=== PATIENT | female | born 1985 | race Caucasian/White ===

== ENCOUNTER 2016-08-07 19:24 | Emergency (ER) | payer OTHER ==
[2016-08-07 19:37] VITALS: BP 157/84
[2016-08-07] MEDS ORDERED: Amoxicillin PO (*) 500 MG CAP PO ONE (21:39)
--- NOTE | 2016-09-01 09:47 | UC ---
I, Christopher,Miguel, scribed for Greta Ziegler MD on 08/07/16 at 2020 . Throat Pain/Nasal Davon HPI - HPI Summary HPI Summary: THis 31 y/o female presents to [facility] for fever and sore throat since 3 days ago. Temperature of 97.6 F is noted at triage. Positive SOLARES. Negative rash. in the household was recently dx with strep throat, and pt decided to visit [facility] today when she became concerned with possible sick contact. PMHx includes PCOS and DM. Pt is currently glipizide, metformin, and ramipirl. NKDA is confirmed with pt. Primary care involves Dr. Martinez. Plan of care involving strep throat is discussed with pt, and she is agreeable. - History of Current Complaint Chief Complaint: UCRespiratory Stated Complaint: ST,HEADACHE,FEVER Hx Obtained From: Patient, Medical Records Hx Last Menstrual Period: pcos does not get Onset/Duration: Gradual Onset, Lasting Days, Still Present Associated Signs & Symptoms: Positive: Fever, Rash - Allergies/Home Medications Allergies/Adverse Reactions: Allergies Allergy/AdvReac Type Severity Reaction Status Date / Time No Known Allergies Allergy Verified 04/03/12 09:59 Home Medications: Home Medications Ramipril CAP* [Altace CAP*] 5 mg PO DAILY 08/07/16 [History Confirmed 08/07/16] glipiZIDE TAB* [Glucotrol TAB*] 5 mg PO DAILY 08/07/16 [History Confirmed ] PMH/Surg Hx/FS Hx/Imm Hx - Additional Past Medical History Additional PMH: Positive Hx of PCOS. Endocrine History: Diabetes - Surgical History Surgical History: None - Family History Known Family History: Negative: Cardiac Disease - Social History Alcohol Use: None Substance Use Type: None Smoking Status (MU): Never Smoked Tobacco Review of Systems Constitutional: Fever Skin: Negative Eyes: Negative ENT: Sore Throat Respiratory: Negative Cardiovascular: Negative Gastrointestinal: Negative Genitourinary: Negative Motor: Negative Neurovascular: Negative Musculoskeletal: Negative Neurological: Headache Psychological: Negative All Other Systems Reviewed And Are Negative: Yes Physical Exam Triage Information Reviewed: Yes Appearance: Obese Vital Signs: Initial Vital Signs Temp 97.6 F 08/07/16 19:26 Pulse 118 08/07/16 19:26 Resp 18 08/07/16 19:26 BP 157/84 08/07/16 19:26 Pulse Ox 99 08/07/16 19:26 Vital Signs Reviewed: Yes Eyes: Positive: Conjunctiva Clear ENT: Positive: Pharyngeal erythema, Tonsillar swelling - equal bilat, Tonsillar exudate - white, Other: - uvula midline Neck: Positive: Nontender - Negative meningismus Respiratory: Positive: Lungs clear, Normal breath sounds, No respiratory distress, No accessory muscle use Cardiovascular: Positive: Pulses Normal, Brisk Capillary Refill, Tachycardia Musculoskeletal: Positive: ROM Intact Neurological: Positive: Muscle Tone Normal Psychological: Positive: Age Appropriate Behavior Throat Pain/Nasal Course/Dx - Course Assessment/Plan: No new problems in CCC. Home medication list reviewed and confirmed. Vital sign at triage reviewed, and elevated blood pressure of 154/ 84 is noted. Advised to drink lots of fluids. - Differential Dx/Diagnosis Provider Diagnoses: Strep throat. pharygitis. volume depletion Discharge - Discharge Plan Condition: Stable Disposition: HOME Prescriptions: Amoxicillin (*) [Amoxicillin 875 MG (*)] 875 mg PO BID #19 tab Patient Education Materials: Amoxicillin (By mouth), Pharyngitis (ED), Strep Throat (ED) Referrals: Jamie Martinez MD [Medical Doctor] - 2 Days Additional Instructions: Please follow up with your primary care provider per routine. Seek medical attention for worsening problems in the meantime. The documentation as recorded by the Christopher jay Soohyun accurately reflects the service I personally performed and the decisions made by me, Greta Ziegler MD.
== END 2016-08-07 22:06 | disposition home or self-care (01) ==
LOC: UCEAST 19:24
DX: J02.0 Streptococcal pharyngitis (principal); E86.9 Volume depletion, unspecified; E11.9 Type 2 diabetes mellitus without complications; Z79.84 Long term (current) use of oral hypoglycemic drugs; E28.2 Polycystic ovarian syndrome; E66.9 Obesity, unspecified
CPT/HCPCS: 87651; 99212; A9270-GY; G0463

== ENCOUNTER 2017-07-18 07:50 | Emergency (ER) | payer OTHER ==
--- NOTE | 2017-07-18 08:39 | UC ---
Knee Pain HPI - HPI Summary HPI Summary: Twisting injury to left knee descending stairs rapidly x 2 weeks ago. Has been using ice and ibuprofen 600 every 6 hours for control of pain. Knee has become progressively more painful and swollen. Has continued to weight bear. Unusually high BP today; normal renal function by history. Discussed, will defer imaging until assessed by orthopedics. - History of Current Complaint Chief Complaint: UCLowerExtremity Stated Complaint: KNEE PAIN (L) Time Seen by Provider: 07/18/17 08:28 Hx Obtained From: Patient Hx Last Menstrual Period: unknown, PCOS Onset/Duration: Sudden Onset, Lasting Weeks - about 2 Severity Initially: Moderate Severity Currently: Severe Pain Intensity: 8 Character: Aching, Throbbing Aggravating Factor(s): Movement, Weight Bearing, Prolonged Standing, Stairs Alleviating Factor(s): Rest, Position, OTC Meds Associated Signs And Symptoms: Positive: Swelling Able to Bear Weight: Yes - Risk Factors Septic Arthritis Risk Factor: Negative Gout Risk Factor: Obesity - Allergies/Home Medications Allergies/Adverse Reactions: Allergies Allergy/AdvReac Type Severity Reaction Status Date / Time No Known Allergies Allergy Verified 07/18/17 08:07 Home Medications: Home Medications Ibuprofen TAB* [Motrin TAB* 600 MG] 600 mg PO Q6H PRN 07/18/17 [History Confirmed 07/18/17] metFORMIN* [Glucophage 500 MG TAB *] 500 mg PO BID 07/18/17 [History Confirmed 07/18/17] PMH/Surg Hx/FS Hx/Imm Hx - Additional Past Medical History Additional PMH: Morbid obesity Endocrine History: Diabetes Cardiovascular History: Hypertension - On ramipril for kidney protection, but last BP in May was 123/96 at MD office. - Surgical History Surgical History: None - Family History Known Family History: Negative: Cardiac Disease - Social History Occupation: Employed Full-time - works at [employer] Lives: With Family - spouse and children Alcohol Use: None Substance Use Type: None Smoking Status (MU): Never Smoked Tobacco Have You Smoked in the Last Year: No Review of Systems Constitutional: Negative Skin: Negative Eyes: Negative ENT: Negative Respiratory: Negative Cardiovascular: Other - BP markedly elevated today; discussed could be promoted by nsaid's. Gastrointestinal: Negative Genitourinary: Negative Motor: Negative Neurovascular: Negative Musculoskeletal: Arthralgia Neurological: Negative Psychological: Negative Is Patient Immunocompromised?: No All Other Systems Reviewed And Are Negative: Yes Physical Exam Triage Information Reviewed: Yes Appearance: Pain Distress - moderate to severe., Obese Vital Signs: Initial Vital Signs Temp 98.6 F 07/18/17 08:04 Pulse 108 07/18/17 08:04 Resp 18 07/18/17 08:04 BP 157/107 07/18/17 08:04 Pulse Ox 99 07/18/17 08:04 Vital Signs Reviewed: Yes Respiratory: Positive: Lungs clear, Normal breath sounds Cardiovascular: Positive: RRR, No Murmur Musculoskeletal: Positive: ROM Limited @ - left knee, with large effusion. Flexion limited to approx 70 degrees, normal extension. Tenderness lateral joint line, posteriorly. No erythema or warmth. Neurological Exam: Normal Psychological Exam: Normal Skin Exam: Normal Knee Pain Course/Dx - Course Course Of Treatment: Likely meniscal tear --will decrease activity and refer to orthopedics. Ice, hydrocodone for pain not controlled by acetaminophen, ice. - Differential Dx/Diagnosis Differential Diagnosis/HQI/PQRI: Sprain, Strain, Other - meniscal tear. Provider Diagnoses: left knee injury, likely meniscal tear. Discharge - Sign-Out/Discharge Documenting (check all that apply): Discharge/Admit/Transfer - Discharge Plan Condition: Stable Disposition: HOME Prescriptions: Hydrocodone/Acetaminophen [Hydrocodone-Acetamin 5-325 mg] 1 each PO Q6H PRN #20 tablet MDD 8 PRN Reason: Pain - Moderate To Severe Patient Education Materials: Crutch Instructions (ED), Swollen Knee Joint (ED) Forms: *Work Release Referrals: Tej Matthews DO [Primary Care Provider] - Hyacinth Thomas MD [Medical Doctor] - Additional Instructions: As discussed, your blood pressure is high today, and this could be partly due to pain, but also due to high use of ibuprofen. For now, minimize use us ibuprofen. You have a prescription for hydrocodone with acetaminophen. You can take one along with additional over the counter acetaminophen of 500mg at the same time to improve pain control. If you take 2 tablets, do not use additional acetaminophen. Maximal daily dose of acetaminophen is 3000mg per day. Use crutches to decrease weight bearing on the left knee, and ensure that you have the knee iced and elevated frequently in the day. I advise off work until you are assessed by orthorpedics. I suggest an extra dose of ramipril today because of the elevated blood pressure (second reading 164/96). Call [facility] first thing Wednesday to arrange a visit at the best location for you. - Billing Disposition and Condition Condition: STABLE Disposition: HOME
[2017-07-18 09:10] VITALS: BP 164/96
== END 2017-07-18 09:22 | disposition home or self-care (01) ==
LOC: UCCORT 07:50
DX: S89.92XA Unspecified injury of left lower leg, initial encounter (principal); X50.0XXA Overexertion from strenuous movement or load, initial encounter; Y93.01 Activity, walking, marching and hiking; Y92.9 Unspecified place or not applicable; R03.0 Elevated blood-pressure reading, without diagnosis of hypertension